=== PATIENT | female | born 1945 | race Caucasian/White ===

== ENCOUNTER 2017-07-13 16:48 | Emergency (ER) | payer MEDICARE, MEDICAID ==
[2017-07-13] MEDS ORDERED: Sodium Chloride 0.9% 10 ML Syringe FLUSH PRN (18:36)
[2017-07-13] MEDS ORDERED: Morphine 4 MG/ML Syringe IVPUSH ONE (18:42)
[2017-07-13] MEDS ORDERED: Iopamidol 612 MG/ML 100 ML Bottle IVPUSH ONE (19:05)
[2017-07-13] MEDS ORDERED: Sodium Chloride 0.9% 100 ML IV SCH (19:15)
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
[2017-07-13] MEDS ORDERED: Take Home: Acetaminophen/HYDROcodone 325-10 MG, 5 Tab Pack PO ONE (21:39)
== END 2017-07-13 21:50 | disposition home or self-care (01) ==
LOC: VM.ED 16:48
DX: S32.501A Unspecified fracture of right pubis, initial encounter for closed fracture (principal); S22.41XA Multiple fractures of ribs, right side, initial encounter for closed fracture; S70.01XA Contusion of right hip, initial encounter; I10 Essential (primary) hypertension; W10.8XXA Fall (on) (from) other stairs and steps, initial encounter
CPT/HCPCS: 36415; 71101; 71260; 73502; 74177; 80053; 81001; 85025; 85610; 86140; 96374; 99284; A9270; J2270; J7050; Q9967

== ENCOUNTER 2020-11-18 07:42 | Day surgery (SDC) | payer MEDICARE, MEDICAID ==
[~2020-11-18 07:42] MED LIST: Lactated Ringers 1,000 ML IV SCH
[2020-11-18] MEDS ORDERED: Propofol 200 MG/20 ML SDV ONE ×2 (08:07→09:16)
[2020-11-18] MEDS ORDERED: fentaNYL 100 MCG/2 ML SDV ONE (08:08)
--- NOTE | 2020-11-18 13:14 | OR ---
PREOPERATIVE DIAGNOSES: 1. Colon cancer screening. 2. Iron-deficiency anemia. POSTOPERATIVE DIAGNOSES: 1. Two polyps removed using cold forceps. a. 3 mm polyp at the entry to the cecum. b. 6 mm sessile polyp at 40 cm. This was located on the haustral fold and was quite flat. I was unable to snare this, so it was removed piecemeal with cold forceps. 2. Moderate sigmoid diverticulosis. 3. Tortuous colon. PROCEDURE: Colonoscopy with polypectomy x2 using cold forceps. SURGEON: Ross Mitchell M.D. ANESTHESIA: Monitored anesthesia care. BOWEL PREP: Good. DESCRIPTION OF PROCEDURE: Jenise is a 75-year-old female who was brought to the endoscopy suite after discussing risks and benefits of the procedure. Informed consent was obtained for conscious sedation and colonoscopy with or without biopsy and/or polypectomy. We also discussed possibility of missed lesions. Pre-procedure exam was unremarkable. IV, oxygen, and monitors were placed. The patient was placed in the left lateral decubitus position. Sedation was administered and a digital rectal exam was performed and unremarkable. Colonoscope was passed into the rectum and slowly advanced all the way to the cecum. Cecum was viewed and photographed. The patient did have tortuous colon. The colonoscope was slowly withdrawn and the mucosa was closed observed in a direct circumferential manner. Ascending colon was remarkable for 3 mm polyp at the entry to the cecum. This was removed using cold forceps. The transverse colon was unremarkable. The descending colon revealed a 6 mm sessile polyp located on a haustral fold. The polyp was very flat and unable to be removed using snare. Instead, we used cold forceps in a piecemeal fashion. It was also on a corner which made it a little more difficult to remove. The sigmoid colon revealed moderate diverticulosis. Retroflexion was performed. Rectal mucosa unremarkable. Scope was removed. The patient tolerated the procedure well. The patient was monitored until that baseline status. Discharge instructions were reviewed and the patient was discharged in good condition. COMPLICATIONS: None. TOTAL TIME: 37 minutes. ESTIMATED BLOOD LOSS: About 2 mL. RECOMMENDATIONS/FOLLOW-UP: We will await results of path report to determine ideal followup interval. We will have the patient hold her aspirin for 3 days to limit any chance of bleeding from polypectomy sites. I would like to kindly thank Dottie Mcdonald for this referral. DMB: 11/18/2020 11:20:04 MODL: 11/18/2020 11:52:38 /[id number]
== END 2020-11-18 11:10 | disposition home or self-care (01) ==
LOC: VM.SDS 07:42
PROVIDERS: ATTEND Family Medicine
DX: D12.0 Benign neoplasm of cecum (principal); D12.6 Benign neoplasm of colon, unspecified; K57.30 Diverticulosis of large intestine without perforation or abscess without bleeding; K63.89 Other specified diseases of intestine; D50.9 Iron deficiency anemia, unspecified; E78.5 Hyperlipidemia, unspecified; E03.9 Hypothyroidism, unspecified; I10 Essential (primary) hypertension; M81.0 Age-related osteoporosis without current pathological fracture; G47.00 Insomnia, unspecified; E55.9 Vitamin D deficiency, unspecified; E53.8 Deficiency of other specified B group vitamins; Z79.890 Hormone replacement therapy; Z79.899 Other long term (current) drug therapy; Z79.82 Long term (current) use of aspirin; Z98.890 Other specified postprocedural states; Z87.891 Personal history of nicotine dependence
CPT/HCPCS: 00811; 88305; J2704; J3010; J7120